=== PATIENT | female | born 1985 | race Two or more races ===

== ENCOUNTER → 2025-02-22 | Outpatient (CLI) | payer OTHER, SELFPAY ==
[2025-02-22 18:38] LABS: Urea Breath Test Negative (Negative)
== END | disposition home or self-care (01) ==
LOC: COPL 14:55
PROVIDERS: PCP Family Medicine; Referring Provider Nurse Practitioner Family; Visit Provider Nurse Practitioner Family
DX: K21.9 Gastro-esophageal reflux disease without esophagitis (principal)
CPT/HCPCS: 83013; 83014

== ENCOUNTER → 2025-03-30 | Day surgery (SDC) | payer OTHER, SELFPAY ==
[2025-03-29 07:42] VITALS: BMI 33.7
[2025-03-29 11:36] LABS: HCG Qualitative,Urine Negative
[2025-03-30] VITALS (10 sets, daily range): BP systolic 128–142; BP diastolic 81–94; PULSE 85–108; RESP 10–20; TEMP 36.5–36.9; O2SAT 95–99; BMI 35.3
[2025-03-30] MEDS: OXYMETAZOLINE NAS SPRY 0.05% 15 ML BTL NASAL ×2 (13:56→17:00)
--- NOTE | 2025-03-30 18:09 | PD.SUROPNT ---
Date of Procedure 03/30/25 Pre Op Diagnosis Nasal septal deviation with obstruction Bilateral inferior turbinate hypertrophy Post Op Diagnosis Nasal septal deviation with obstruction Bilateral inferior turbinate hypertrophy Procedure Intranasal septoplasty Bilateral inferior turbinate reduction Findings Deviated nasal septum to the left with enlarged inferior turbinates Procedure Description This is a 39-year-old female with chronic nasal congestion with the above findings. Treatment options were discussed as well as surgical risk including bleeding infection nasal deformity and potential need for further surgery. She understood this and wished to proceed. Patient was transferred to the operative suite where she was anesthetized intubated and sterilely draped. Timeout was performed. Nasal septum as well as the inferior turbinates were injected with 1% lidocaine with 1 100,000 dilution epinephrine. Approximately 5 cc total were used. A caudal rim incision was made on the left side of the septum mucosa was carefully elevated off the septal cartilage and bone. Perpendicular plate was from the quadrangular cartilage with a [place] elevator mucosal flap elevated off the right side. The deviated portion of the perpendicular plate was removed a Jacob forceps. There is still some mild deviation inferiorly and this was fractured over with the medium nasal speculum. The mucosal flaps were then reapproximated to the underlying cartilage with a 4-0 plain gut suture in a quilting type stitch. This was used to close the rim incision as well. Left inferior turbinate was then reduced in submucosal plane with a 2.9 mm turbinate shaver blade. Dissection was performed on insertion and withdrawal. The entry site was then cauterized. A similar procedure was performed on the right side. Patient was awakened and taken the recovery room in stable condition Anesthesia GETA Pathology / specimen None Estimated Blood Loss 5 Surgeon Vincent Lizama DO Surgical Staff Operation Date: 03/30/25 16:00 Case Staff Anesthesiologist: Adrian Harp
--- NOTE | 2025-03-30 18:52 | SUR.PHASEI ---
AT 1821 PATIENT RECEIVED INTO [facility], REPORT RECEIVED FROM JIL CHOUDHURY AND DR HOLLIS, NO S/S OF DISTRESS NOTED, DRESSING UNDER NOSE IS CLEAN AND DRY, VSS.
--- NOTE | 2025-03-30 18:57 | SUR.PHASEII ---
1858 PATIENT TOLERATING PO WATER.
--- NOTE | 2025-03-30 19:39 | SUR.PHASEII ---
194 JESSICA () GIVEN D/C INSTRUCTION, HE STATED ALL INSTRUCTION WERE UNDERSTOOD AND HAD NO FURTHER QUESTION OR CONCERN. PATIENT D/C IN STABLE CONDITION.
== END | disposition home or self-care (01) ==
PROVIDERS: Anesthesiology; PCP Family Medicine; Referring Provider Otolaryngology; Visit Provider Otolaryngology
PROC: (CPT 30520; principal; 2025-03-30 15:45)
DX: J34.3 Hypertrophy of nasal turbinates (principal); J34.2 Deviated nasal septum
CPT/HCPCS: 30130; 81025; A4217; A4649; J0690; J1100; J1885; J2250; J2371; J2405; J2590; J2704; J2795; J3010; J3490; J7040; A9270

== ENCOUNTER 2025-05-25 14:56 | Inpatient (IN) | payer OTHER, SELFPAY ==
--- NOTE | 2025-05-25 | XR_ITS ---
MRI abdomen, without contrast. MRCP Date and time of exam: May 25, 2025, 1737 hours INDICATIONS: Mid abdominal pain beginning 3 days ago, gallbladder sonogram today enlarged common bile duct 0.8 cm, cholelithiasis Technique: Multiple axial and coronal images of the abdomen have been obtained with the Siemens 1.5T MRI scanner. Images obtained included T1 weighted transverse images, T2-weighted transverse images, T2-weighted transverse images fat-suppressed, T2 weighted haste fat suppressed transverse images, T1 weighted images, in and out of phase images, T2-weighted coronal images, breath hold, T2 weighted haze coronal images as well as T2 weighted coronal thick slab images, MRCP. Findings: No focal liver lesions Mild intrahepatic biliary ductal dilatation Cholelithiasis, negative for cholecystitis Common bile duct 6 mm no common bile duct stones No peripancreatic edema No hydronephrosis No ascites Aorta normal size Negative for splenomegaly IMPRESSION: Cholelithiasis, negative for cholecystitis Negative for common hepatic or common bile duct stones Negative for pancreatitis
[2025-05-25 15:19] VITALS: BP 117/76; PULSE 69; RESP 18; TEMP 37.1; O2SAT 100; BMI 35.8
--- NOTE | 2025-05-25 15:24 | EKG_ITS ---
[facility] Test Date: 2025-05-25 Pat Name: RENETTA SCHAFER Department: Room: - Gender: Female [place] C[place]: : 1985 Requested By: Jose Eduardo Fernando Order Number: [id number] Reading MD: Jose Eduardo Fernando Measurements Intervals Onyx Rate: 68 P: 51 IL: 138 QRS: 24 QRSD: 86 T: 38 QT: 373 QTc: 398 Interpretive Statements SINUS RHYTHM Compared to ECG 10/09/2023 11:48:29 No significant changes /store/S0/[id number].pdf
--- NOTE | 2025-05-25 15:24 | XR_ITS ---
Examination: Abdomen sonogram, Limited Date and time of exam: May 25, 2025 1546 hours INDICATIONS: Onset epigastric pain today Technique: Real-time kate scale transabdominal sonographic images of the upper abdomen obtained. Findings: Multiple gallstones Gallbladder wall 0.36 cm no edema Common bile duct enlarged 0.8 cm although no definite stones Pancreatic head 2.9 cm Liver 13.6 cm smooth contour no focal liver lesions Normal hepatopedal portal venous flow Patent IVC IMPRESSION: Cholelithiasis Abnormal enlargement common bile duct 0.8 cm, consider MRCP follow-up to exclude common bile duct stones and/or stricture
--- NOTE | 2025-05-25 15:26 | PD.EDABDPN ---
ED Abdominal Pain RME/HPI General Chief Complaint: Abdominal Pain Stated complaint: Mid center abdominal pain Time seen by provider: 05/25/25 15:05 Arrival date/time: 05/25/25 14:56 RME / HPI RME / HPI narrative: 39-year-old female patient came in for evaluation regarding epigastric pain. Onset of symptoms earlier today, after eating tacos. Associated with nausea. Pain is described as crampy, 70 moderate. No fever noted no vomiting noted no diarrhea any noted no constipation noted. Patient also denies any abdominal surgery. She is not taking any maintenance medications. Related Data Previous Rx's ?Medication ?Instructions ?Recorded cephalexin 500 mg capsule 500 mg PO BID #2 caps 03/30/25 Allergies Allergy/AdvReac Type Severity Reaction Status Date / Time No Known Allergies Allergy Verified 05/25/25 15:01 Review of Systems Review of Systems Narrative Review of Systems: Review of system reviewed and within normal limits except mentioned in HPI ED Exam Narrative Physical exam: VITAL SIGNS: Reviewed. GENERAL APPEARANCE: Alert and interactive, follows commands, no acute distress, HEAD AND FACE: Non-traumatic. ENT: PERRL, pink conjunctivitis, eyelid no trauma, Mucous membrane moist. NECK: Supple, nontender, no nuchal rigidity. CHEST: No tenderness, no crepitus, no paradoxical movement, no retractions. LUNGS: Clear, well ventilated, symmetric, no rales, no wheezing, no ronchi, no stridor, good breath sounds bilaterally. HEART: Regular rate, regular rhythm, no murmur, no gallops. ABDOMEN: Soft, positive bowel sounds, nondistended, no guarding, epigastric tenderness, no rebound, no masses, RECTAL: Deferred. GENITAL: Deferred. NEUROLOGICAL: Gross motor function intact sensory function intact, Appropriate for age. MUSCULOSKELETAL: low back nontender, full range of motion. EXTREMITIES: Nontender, full range of motion. SKIN: Color pink, dry, no rash, no lacerations, no abrasions, no contusions. LYMPHATICS: Deferred. Course Quality Measures none Orders Category Date Time Status COVID-19 Screening Questionnaire NOW Care 05/25/25 19:32 Ordered Decision to Admit X1 Care 05/25/25 19:32 Ordered EKG (ED ONLY) *Do not use* NOW Care 05/25/25 15:24 Completed MRI Screening NOW Care 05/25/25 16:32 Active EKG (ED Only) Stat Exams 05/25/25 15:24 Draft MR MRCP Stat Exams 05/25/25 Completed US gall bladder Stat Exams 05/25/25 15:24 Completed CBC Stat Lab 05/25/25 15:40 Completed Comprehensive Metabolic Panel Stat Lab 05/25/25 15:40 Completed HCG Qualitative,Urine Stat Lab 05/25/25 18:16 Completed Lipase Stat Lab 05/25/25 15:40 Completed Lipid Panel Stat Lab 05/25/25 15:40 Completed Partial Thromboplastin Time Stat Lab 05/25/25 15:40 Completed Prothrombin Time with INR Stat Lab 05/25/25 15:40 Completed UA, C/S IF [Urinalysis, C/S if Indicated] Stat Lab 05/25/25 18:16 Completed Ketorolac Inj [Toradol Inj] Med 05/25/25 15:25 Discontinued 30 mg IM X1 ONE Ondansetron Odt [Zofran Odt] Med 05/25/25 15:25 Discontinued 4 mg PO X1 ONE Ringers Lactated 1000 ml [Lactated Ringers] 1,000 ml Med 05/25/25 17:15 Discontinued IV 999 mls/hr Vital Signs Vital signs: Vital Signs Temperature 98.7 F 05/25/25 15:19 Pulse Rate 69 05/25/25 15:19 Respiratory Rate 18 05/25/25 15:19 Blood Pressure 117/76 05/25/25 15:19 Pulse Oximetry (%) 100 05/25/25 15:19 Oxygen Delivery Method Room Air 05/25/25 15:19 Abdominal Pain MDM MDM Narrative MDM Narrative:: 39-year-old female patient came in for evaluation regarding epigastric pain. Onset of symptoms earlier today, after eating tacos. Associated with nausea. Pain is described as crampy, 70 moderate. No fever noted no vomiting noted no diarrhea any noted no constipation noted. Patient also denies any abdominal surgery. She is not taking any maintenance medications. Patient received IV fluids, Toradol, and Zofran. Patient workup is significant for lipase of more than 3500. There is of the labs unremarkable. Ultrasound of the gallbladder showed cholelithiasis with dilatation of common bile duct. I did a MRCP, I came back cholelithiasis with no sign of acute cholecystitis. No choledocholithiasis noted. Results discussed with the patient. Case discussed with hospitalist, who admitted the patient. Patient data External records reviewed:: None Clinical information provided by:: patient Social determinants that could affect healthcare access:: none Patient has the following chronic illnesses:: None How is presenting disease/condition affected by chronic disease/condition?: no chronic disease Evaluation data The following diagnostics were reviewed and interpreted by me:: lab results and radiology exam(s) Lab and/or radiology exams considered but not ordered:: None Interpretation Summary: See results MDM Medications / Prescriptions Medications or Prescriptions considered but not ordered:: None Medication administrations:: Medication Administration History Discontinued Medications Lactated Ringer's (Lactated Ringers) 1,000 mls @ 999 mls/hr IV .Q1H1M ONE Stop: 05/25/25 18:15 Last Admin: 05/25/25 18:39 Dose: 999 mls/hr Documented By: LELA Ketorolac Tromethamine (Ketorolac Inj 60 Mg/2 Ml Vial) 30 mg IM X1 ONE Stop: 05/25/25 15:26 Last Admin: 05/25/25 15:33 Dose: 30 mg Documented By: CARISSA Ondansetron HCl (Ondansetron Odt 4 Mg Tabrap) 4 mg PO X1 ONE; Protocol Stop: 05/25/25 15:26 Last Admin: 05/25/25 15:34 Dose: Not Given Documented By: CARISSA Non-Admin Reason: Patient Refused Zofran, Toradol, IV fluids Consultations Consultation(s) initiated? (list below): No Diagnosis Differential diagnosis abdominal pain: abdominal pain and other (Gallstone pancreatitis, acute cholecystitis,) Most likely diagnosis given after review of the tests above:: Gallstone pancreatitis Admission Indicated Admission indicated?: indicated Explain why admission is indicated or not indicated:: Patient is to be admitted for further management Admission Request Was there a request for admission?: No Disposition Plan Disposition Plan: Admit Discharge Plan Plan Patient Disposition: Admit Acute Care w/in Hospital Discharge Disposition comment: Stable Prescriptions/Referrals Prescriptions/Med Rec: No Action cephalexin 500 mg capsule 500 mg PO BID Qty: 2 0RF Rx Instructions: Begin first dose tomorrow morning Referrals: Denny Marie MD [Primary Care Provider] - In 1 week Problem List Clinical Impression: Acute gallstone pancreatitis Patient/Caregiver Discharge Instructions Print Language: Faroese Stand Alone Forms: [employer] Patient Portal Info Letter
[2025-05-25] MEDS: KETOROLAC INJ 60 MG/2 ML VIAL 30 MG IM (15:33)
[2025-05-25 16:06] LABS: Basophils # (Auto) 0.0 Thou/mm3 (0.0-0.2); Basophils % (Auto) 0 % (0-2.5); Eosinophils # (Auto) 0.1 Thou/mm3 (0.0-0.5); Eosinophils % (Auto) 1 % (0-10); Hematocrit 40.9 % (36.0-46.0); Hemoglobin 14.2 g/dL (12.0-16.0); Immature Granulocytes Auto 0.05 Thou/mm3 (0.00-0.00); Lymphocytes # (Auto) 2.0 Thou/mm3 (1.0-4.8); Lymphocytes % (Auto) 13 % (10-50); Mean Corpuscular HGB Conc 34.7 g/dl (31.0-37.0); Mean Corpuscular Hemoglobin 32.1 pg (25.0-35.0); Mean Corpuscular Volume 93 fL (80-100); Monocytes # (Auto) 1.0 Thou/mm3 (0.0-0.8); Monocytes % (Auto) 6 % (0-12); Neutrophils # (Auto) 12.2 Thou/mm3 (1.8-7.7); Neutrophils % (Auto) 80 % (37-80); Nucleated Red Blood Cell # 0.00 Thou/mm3 (0.00-0.00); Nucleated Red Blood Cell % 0 /100 WBC (0); Platelet Count 280 Thou/mm3 (140-440); RDW Standard Deviation 42.5 fL (36.4-46.3); Red Blood Count 4.42 Miln/mm3 (4.00-5.20); White Blood Count 15.3 Thou/mm3 (3.6-11.0)
[2025-05-25 16:19] LABS: INR 1.0 (0.9-1.3); Partial Thromboplastin Time 27.3 Seconds (22.0-36.0); Prothrombin Time 10.6 Seconds (9.0-12.2)
[2025-05-25 16:47] LABS: Alanine Aminotransferase 37 U/L (10-49); Albumin, Serum 4.6 gm/dL (3.5-5.0); Albumin/Globulin Ratio 1.5 (1.2-2.2); Alkaline Phosphatase 100 U/L (46-116); Anion Gap 9 (7-16); Aspartate Amino Transferase 76 U/L (0-34); BUN/Creatinine Ratio 8 Ratio (12-20); Bilirubin,Total 0.4 mg/dL (0.3-1.2); Blood Urea Nitrogen 9 mg/dL (9-23); Calcium 9.3 mg/dL (8.3-10.6); Calcium (Corrected) 9.3 mg/dL (8.5-10.1); Carbon Dioxide 28.3 mMol/L (20.0-31.0); Chloride 103 mMol/L (98-107); Creatinine (Component) 1.2 mg/dL (0.6-1.3); Estimated Creatinine Clearance 74.6 mL/min (>60); Globulin 3.1 gm/dL (2.3-3.5); Glucose 96 mg/dL (74-106); Lipase > 3500 U/L (12-53); Osmolality,Calculated 278 (275-295); Potassium 3.9 mMol/L (3.4-5.1); Sodium 140 mMol/L (136-145); Total Protein 7.7 gm/dL (5.7-8.2); eGFR 59 See Note
[2025-05-25 17:31] LABS: Cardiac Risk Estimate 2.3 RATIO (3.7-5.6); Cholesterol 158 mg/dL (132-200); HDL Cholesterol 68 mg/dL (40-60); LDL Cholesterol,Calculated 70 mg/dL (0-130); Triglycerides 101 mg/dL (30-150)
[2025-05-25 18:20] VITALS: BP 116/81; PULSE 81; PULSE 82; RESP 16; RESP 18; TEMP 36.7; TEMP 36.9; O2SAT 97; O2SAT 98
[2025-05-25 18:22] LABS: Collection Type, Urine Clean Catch
[2025-05-25] MEDS: RINGERS LACTATED 1000 ML 1,000 ML 999 ML IV (18:39)
[2025-05-25 19:06] LABS: Bilirubin,Urine Negative (Negative); Blood,Urine 3+ (Negative); Clarity,Urine Clear (Clear/Hazy); Color,Urine Lt-Yellow (Lt Yel-Yel); Culture Indicated,Urine Not Indicated; Glucose, Urine Negative (Negative); Ketones,Urine Negative (Negative); Leukocyte Esterase,Urine Negative (Negative); Nitrite,Urine Negative (Negative); PH,Urine 7.0 (5.0-7.0); Protein,Urine Negative (Neg - Trace); RBC,Urine 26 /hpf (0-3); Specific Gravity,Urine 1.009 (1.001-1.035); Squamous Epithelial Cell,Urine < 1 /hpf (0-5); Urobilinogen,Urine Negative mg/dL (0.0-1.0); WBC,Urine 4 /hpf (0-5)
[2025-05-25 19:15] LABS: HCG Qualitative,Urine Negative
[2025-05-25 19:52] VITALS: BP 133/85; PULSE 75; RESP 20; TEMP 36.8; O2SAT 98
[2025-05-25 21:10] VITALS: BP 129/83; PULSE 62; RESP 18; TEMP 36.1; O2SAT 97
[2025-05-25 21:40] VITALS: BMI 35.6
--- NOTE | 2025-05-25 22:00 | PD.RESHP ---
Documentation for date of: 05/25/25 [facility] History of Present Illness History of present illness: Maryanne Wilhelm is a 39-year-old female with a no PMH who presents today with acute epigastric pain. Patient reports that the pain started today at 2 PM and that she has never had pain like this before. The pain is primarily localized at the epigastrium but radiates up the chest and towards the back. She describes the pain as sharp and burning in character and that the intensity of the it fluctuates (being a 10/10 pain at its most severe). However, at the time of interview, patient had already received Toradol and said that her prior pain had been reduced to mere soreness. Currently, she reports her pain to be a 0/10. In the ED, vitals showed: BP 117/76 HR 69 RR 18 Temp 98.7 SpO2 100% on room air ED Course: CBC showed elevated WBC 15.3 with neutrophilic predominance but was otherwise unremarkable. CMP showed low EGFR 59, high AST 76, normal ALT 37, normal alkaline phosphatase 100, high HDL cholesterol 68, and significantly elevated lipase over 3500. UA showed 3+ blood, with 26 RBCs per high-powered field (of note, patient was on her period). Imaging: EKG showed normal sinus rhythm. Gallbladder ultrasound showed abnormal enlargement of the common bile duct 0.8 cm. MRCP showed cholelithiasis but was negative for cholecystitis, common hepatic or common bile duct stones, and pancreatitis. In the ED, patient was given IM ketorolac 30 mg x 1 and 1 L LR bolus x 1. Patient was admitted for the work-up and management of acute gallstone pancreatitis. Review of Systems Review of Systems Narrative Review of Systems: General: Denies fevers or chills HEENT: Denies congestion or sore throat Heart: Denies chest pain or palpitations Lungs: Denies shortness of breath or cough Abdomen: Denies abdominal pain, nausea, vomiting, constipation, diarrhea, or blood in stool Genitourinary: Denies frequency, urgency, dysuria, or hematuria Neurology: Denies any changes in vision, weakness or difficulty speaking Review of systems otherwise negative except what is mentioned above. Constitutional Comments: General: Denies fevers or chills HEENT: Denies congestion or sore throat Heart: Endorses palpitations. Denies chest pain Lungs: Endorses shortness of breath. Denies cough Abdomen: Endorses RUQ and epigastric abdominal pain. Denies nausea, vomiting, constipation, diarrhea, or blood in stool Genitourinary: Endorses current menstruation. Denies frequency, urgency, dysuria, or hematuria Neurology: Denies any changes in vision, weakness or difficulty speaking Review of systems otherwise negative except what is mentioned above. Past Medical History Past Medical History NEUROLOGIC: Negative Neurological Disorders or Seizures CARDIAC: Negative Cardiac Disorders or Congestive Heart Failure RESPIRATORY: Negative Respiratory Disorders or Chronic Obstructive Pulmonary Disease (COPD) GASTROINTESTINAL: Negative Gastrointestinal Disorders or Hepatitis GENITOURINARY: Negative Genitourinary Disorders or Renal Disease REPRODUCTIVE: Positive Previous Pregnancies MUSCULOSKELETAL: Negative Musculoskeletal Disorders ENDOCRINE: Negative Endocrine Disorders, Diabetes Mellitus Type 1 or Diabetes Mellitus Type 2 HEMATOLOGIC: Negative Blood Disorders OTHER HISTORY: Positive Chicken Pox; Negative Hospitalization, Autoimmune Disease, Shingles, Blood Transfusions, Blood Transfusion Reaction, Anesthesia Reactions or Cancer Family History FAMILY HISTORY: Positive Family Cancer and Family Surgery; Negative Family Psychiatric Problems, Family Respiratory Disorders, Family Cardiac Disorders, Family Gastrointestinal Problems or Family Anesthesia Reaction Surgical History SURGICAL: Positive Nose Surgery Social History SMOKING STATUS: Never smoker SECOND HAND EXPOSURE: No Past Medical History Comments PMH COMMENT: PMH: none PSH: dilation & curettage x2, breast augmentation, septoplasty Medications: none Allergies: none FH: grandma has HTN, dad had prostate cancer, older brother had bile duct cancer SH: lives in a house in [place] with and son, no significant history of drinking, smoking, or recreational drug use Exam Vital Signs Temp Pulse Resp BP Pulse Ox O2 Del Method 98.2 F 75 20 133/85 H 98 Room Air 05/25/25 19:52 05/25/25 19:52 05/25/25 19:52 05/25/25 19:52 05/25/25 19:52 05/25/25 19:52 Narrative Exam Physical Exam: General: Alert, no acute distress. Skin: Warm, dry, intact, no obvious rash. Head: Normocephalic, atraumatic. Eye: Normal conjunctiva, PERRL. Throat: Oral mucosa moist. No obvious lesions in oropharynx. Cardiovascular: Regular rate and rhythm, no murmur, +S1/S2. Respiratory: Lungs are clear to auscultation, respirations unlabored, no crackles, no wheezing. Gastrointestinal: Soft, nontender, non-distended. No guarding or rebound tenderness. Extremities: No edema, no cyanosis, no clubbing. 2+ radial pulse bilaterally, 2+ posterior tibial pulse bilaterally. Neuro: No focal deficits observed. Conversant, moving all extremities. No overt cerebellar signs/incoordination. Psychiatric: Cooperative, appropriate affect. Results: Labs 05/25/25 15:40 05/25/25 15:40 Labs: Short CBC 05/25/25 Range/Units 15:40 WBC 15.3 H (3.6-11.0) Thou/mm3 Hgb 14.2 (12.0-16.0) g/dL Hct 40.9 (36.0-46.0) % Plt Count 280 (140-440) Thou/mm3 BMP 05/25/25 15:40 Sodium 140 Potassium 3.9 Chloride 103 Carbon Dioxide 28.3 BUN 9 Creatinine 1.2 Glucose 96 Calcium 9.3 Liver Function 05/25/25 Range/Units 15:40 Total Bilirubin 0.4 (0.3-1.2) mg/dL AST 76 H (0-34) U/L ALT 37 (10-49) U/L Alkaline Phosphatase 100 (46-116) U/L Albumin 4.6 (3.5-5.0) gm/dL Urine 05/25/25 Range/Units 18:16 Urine Color Lt-Yellow (Lt Yel-Yel) Urine Clarity Clear (Clear/Hazy) Urine pH 7.0 (5.0-7.0) Ur Specific Ivel 1.009 (1.001-1.035) Urine Protein Negative (Neg - Trace) Urine Glucose (UA) Negative (Negative) Quality Measures Quality Measures none Medications Home Medications and Allergies Allergies Allergy/AdvReac Type Severity Reaction Status Date / Time No Known Allergies Allergy Verified 05/25/25 15:01 Visit Medications Acetaminophen (Acetaminophen 325 Mg Tablet) 650 mg PO Q6H PRN PRN Reason: PAIN SCALE 1-3 (mild Stop: 06/24/25 20:15 Hydrocodone Bitart/Acetaminophen (Hydrocodone/Apap 5/325 Tablet) 1 tab PO Q6HR PRN PRN Reason: PAIN SCALE 4-6 (Moderate Stop: 05/30/25 20:15 Enoxaparin Sodium (Enoxaparin Sod Inj 40 Mg/0.4 Ml Syringe) 40 mg SC QDAY GRISELDA Stop: 06/09/25 08:59 Lactated Ringer's (Lactated Ringers) 1,000 mls @ 150 mls/hr IV .Q6H40M GRISELDA Stop: 06/24/25 21:26 Morphine Sulfate (Morphine Sulf Inj 10 Mg/Ml Vial) 1 mg IVP Q6HR PRN PRN Reason: PAIN SCALE 7-10 (Severe Stop: 05/30/25 20:15 Ondansetron HCl (Ondansetron Inj 2 Mg/Ml Inj 2 Ml) 4 mg IVP Q6H PRN; Protocol PRN Reason: NAUSEA OR VOMITING Stop: 06/24/25 20:15 Discontinued Medications Lactated Ringer's (Lactated Ringers) 1,000 mls @ 999 mls/hr IV .Q1H1M ONE Stop: 05/25/25 18:15 Last Infusion: 05/25/25 19:48 Dose: Infused Lactated Ringer's (Lactated Ringers) 1,000 mls @ 200 mls/hr IV .Q5H GRISELDA Stop: 06/24/25 20:29 Ketorolac Tromethamine (Ketorolac Inj 60 Mg/2 Ml Vial) 30 mg IM X1 ONE Stop: 05/25/25 15:26 Last Admin: 05/25/25 15:33 Dose: 30 mg Ondansetron HCl (Ondansetron Odt 4 Mg Tabrap) 4 mg PO X1 ONE; Protocol Stop: 05/25/25 15:26 Last Admin: 05/25/25 15:34 Dose: Not Given Assessment & Plan Assessment Maryanne Wilhelm is a 39-year-old female with a no PMH who presents today with acute epigastric pain. Patient was admitted for the work-up and management of acute gallstone pancreatitis. #Acute gallstone pancreatitis #Transaminitis #Leukocytosis Diagnosis corroborated by significantly elevated lipase over 3500 and classic epigastric pain consistent with pancreatitis (diagnosis confirmed even with negative MRCP findings due to achieving 2 of 3 diagnostic criteria) MRCP showed cholelithiasis s/p 1 L LR bolus x1 (loading fluid infusion) given in ED Elevated WBC 15.3 w/ neutrophilic predominance and elevated AST 76 is currently thought to be 2/2 pancreatitis Diagnostic Inquiry -Consider consulting General Surgery for indications for possible cholecystectomy (given symptomatic gallstones) Treatment Plan -1 L LR maintenance fluid @ 150 mL/hr (moderate fluid infusion) to improve pancreatic perfusion and prevent hypovolemia -Pain management: 1. PO Tylenol 650 mg q6HR prn (pain 1-3) 2. PO [place] 5/325 q6HR prn (pain 4-6) 3. IV morphine 1 mg q6HR prn (pain 7-10) -NPO (advance diet as tolerated) -IV Zofran 4 mg q6HR prn for nausea #CLARE, likely renal/postrenal (BUN/creatinine ratio 7.5) #likely 2/2 to dehydration Patient meets criteria for CLARE due to an increase of 0.5 in her creatinine (baseline 0.7 -> current 1.2) Low eGFR 59 Diagnostic Inquiry -Monitor renal panel -Daily weights to monitor volume status Treatment Plan -1 L LR maintenance fluid @ 150 mL/hr (same management for pancreatitis) #Hematuria UA showed 3+ blood with 26 RBCs/hpf but patient is currently on her period Diagnostic Inquiry -Repeat UA after patient's period has passed Treatment Plan -No current recommendation Hospital Management: Disposition: undergoing management of acute gallstone pancreatitis Diet: NPO (advance diet as tolerated) GI Prophylaxis: none Bowel Prophylaxis: none DVT Prophylaxis: Lovenox CODE STATUS: Full Code I have examined the patient and conferred with my attending, Dr. Merrill, and my senior resident, Dr. Jeffers, regarding them. Darion Clay DO PGY-1 Internal Medicine Attending Provider Attestation/Addendum I attest that I was physically present for the evaluation, physical examination, lab and imaging review of the patient with the residents. I discussed the case with the residents and agree with the findings and plans of care as documented above. After examination of the patient and review of the clinical data I feel that this patient needs admission to the hospital for further treatment/evaluation. Patient is a 39 years old female without known past medical history who presented to the ED with complaint of abdominal pain. The pain was located initially in epigastrium, radiating to right upper quadrant and her back. Pain was severe but has improved significantly now. It was also associated with some nausea. She denied any vomiting, change in bowel or bladder habit, fever. In the ED, initial vitals were within normal limits. Lab results show leukocytosis with WBC of 15.3, chemistry panel showed creatinine of 1.2, elevated from her baseline of 0.7, AST 76, lipase more than 3500. Gallbladder ultrasound was obtained, which showed cholelithiasis, CBD dilation 0.8 cm. MRCP was done afterwards, which showed cholelithiasis, negative for cholecystitis and negative for common hepatic and common bile duct. CBD diameter was 6 mm. Her calcium level and triglyceride levels are also within normal limits. Patient also denied alcohol abuse. We will admit the patient for management of acute pancreatitis likely secondary to gallstones. Patient received fluid bolus in the ED, we will continue with aggressive hydration with Ringer's lactate at 150 cc/h. Also started on analgesic regimen and antiemetics. We will keep her n.p.o. for now, once patient's nausea resolves completely, we will start her on clear liquid diet. Consider general surgery consult in a.m. for evaluation for cholecystectomy. Ramon Merrill MD
[2025-05-25] MEDS: RINGERS LACTATED 1000 ML 1,000 ML 150 ML IV (22:29)
[2025-05-26] VITALS: BP 112/70; PULSE 64; RESP 19; TEMP 36.1; O2SAT 97
--- NOTE | 2025-05-26 03:55 | PC.NURSE ---
Patient arrived in MedSurg unit from ED via wheelchair.
[2025-05-26 04:00] VITALS: BP 100/64; PULSE 64; RESP 18; TEMP 36.2; O2SAT 97
[2025-05-26] MEDS: RINGERS LACTATED 1000 ML 1,000 ML 150 ML IV ×3 (05:19→17:54)
[2025-05-26 06:30] LABS: Basophils # (Auto) 0.0 Thou/mm3 (0.0-0.2); Basophils % (Auto) 1 % (0-2.5); Eosinophils # (Auto) 0.2 Thou/mm3 (0.0-0.5); Eosinophils % (Auto) 4 % (0-10); Hematocrit 39.6 % (36.0-46.0); Hemoglobin 13.8 g/dL (12.0-16.0); Immature Granulocytes Auto 0.02 Thou/mm3 (0.00-0.00); Lymphocytes # (Auto) 2.2 Thou/mm3 (1.0-4.8); Lymphocytes % (Auto) 35 % (10-50); Mean Corpuscular HGB Conc 34.8 g/dl (31.0-37.0); Mean Corpuscular Hemoglobin 32.1 pg (25.0-35.0); Mean Corpuscular Volume 92 fL (80-100); Monocytes # (Auto) 0.6 Thou/mm3 (0.0-0.8); Monocytes % (Auto) 9 % (0-12); Neutrophils # (Auto) 3.3 Thou/mm3 (1.8-7.7); Neutrophils % (Auto) 51 % (37-80); Nucleated Red Blood Cell # 0.00 Thou/mm3 (0.00-0.00); Nucleated Red Blood Cell % 0 /100 WBC (0); Platelet Count 233 Thou/mm3 (140-440); RDW Standard Deviation 42.2 fL (36.4-46.3); Red Blood Count 4.30 Miln/mm3 (4.00-5.20); White Blood Count 6.4 Thou/mm3 (3.6-11.0)
[2025-05-26 07:16] LABS: Alanine Aminotransferase 128 U/L (10-49); Albumin, Serum 3.6 gm/dL (3.5-5.0); Albumin/Globulin Ratio 1.3 (1.2-2.2); Alkaline Phosphatase 87 U/L (46-116); Anion Gap 10 (7-16); Aspartate Amino Transferase 126 U/L (0-34); BUN/Creatinine Ratio 10 Ratio (12-20); Bilirubin,Total 0.6 mg/dL (0.3-1.2); Blood Urea Nitrogen 7 mg/dL (9-23); Calcium 8.5 mg/dL (8.3-10.6); Calcium (Corrected) 8.8 mg/dL (8.5-10.1); Carbon Dioxide 25.8 mMol/L (20.0-31.0); Chloride 108 mMol/L (98-107); Creatinine (Component) 0.7 mg/dL (0.6-1.3); Estimated Creatinine Clearance 127.5 mL/min (>60); Globulin 2.7 gm/dL (2.3-3.5); Glucose 86 mg/dL (74-106); Glucose Estimated Average 97 mg/dL (80-131); Hemoglobin A1C 5.0 % Hgb (4.8-6.0); Magnesium 1.5 mg/dL (1.6-2.6); Osmolality,Calculated 283 (275-295); Phosphorous 2.5 mg/dL (2.4-5.1); Potassium 4.2 mMol/L (3.4-5.1); Sodium 144 mMol/L (136-145); Total Protein 6.3 gm/dL (5.7-8.2); eGFR > 60 See Note
[2025-05-26 08:00] VITALS: BP 118/68; PULSE 68; RESP 17; TEMP 36.1; O2SAT 97
--- NOTE | 2025-05-26 10:48 | PC.SS ---
Maryanne Wilhelm is a 39-year-old female admitted to Med Surg for Pancreatitis. SS conducted bedside contact with the patient to complete initial assessment and to discuss discharge planning. Role and reason explained. Patient confirmed demographic information. Patient identifies Valeriy Garza [phone] as her surrogate decision maker. Pt states she is able to complete all ADL?s independently. No need for any source of DME. Pts PCP is Dr. Kian Marie (last visit was about 2 months ago) . Pharmacy of choice is [facility]. Discharge options discussed and the pt wishes to return home.? Family will provide transportation upon DC. No further intervention required at this time, aids social worker would be available to address any further concerns. DC Plan: Home Contact: randall Crooks Address: Confirmed on face sheet PCP: Frank
[2025-05-26 12:00] VITALS: BP 108/72; PULSE 64; RESP 17; TEMP 36.1; O2SAT 98
--- NOTE | 2025-05-26 13:43 | ESPR_ITS ---
Documentation for date of: 05/26/25 Senior resident attestation: Patient evaluated and examined at the bedside, plan of care discussed with rest of the team including my attending physician, except as noted. The patient was seen for acute pancreatitis, idiopathic etiology, patient does have gallstones, but no evidence of cholecystitis or choledocholithiasis on MRCP. Noted remarkable improvement patient condition, pain improved, started on clear liquid diet, patient tolerating diet continue IV fluids for today, will advance diet to full liquid for dinner and. Multimodal analgesia as needed. Anticipate discharge in the morning. Patient will be referred to general surgery for elective cholecystectomy at a later date. Quresh PGY3 Subjective Subjective Interval history: No Overnight events. Labs reviewed and patient examined at the bedside. WBC: 6.4 Cr:0.7. Patient has minimal epigastric pain. Denies shortness of breathe, chest pain, palpitations, fevers or chills. Still on LR maintenance fluid 150ml/hr. Patient started on clear liquid diet. In ED, MRCP showed cholelithiasis. Surgery consult ordered. Exam Vital Signs Temp Pulse Resp BP Pulse Ox O2 Del Method 97.0 F 64 17 108/72 98 Room Air 05/26/25 12:00 05/26/25 12:00 05/26/25 12:00 05/26/25 12:00 05/26/25 12:05/26/25 12:00 Narrative Exam General: No acute distress, well nourished Eye: PERRL, EOMI, normal conjunctiva, no scleral icterus HENT: Normocephalic, atraumatic, hearing intact to conversation at normal volume, moist oral mucosa Neck: Supple, non-tender, no JVD, no lymphadenopathy Lungs: Non-labored respirations, symmetric chest rise, Clear to auscultate bilaterally Heart: Peripheral pulses intact bilaterally, Regular Rate and Rhythm Abdomen: Soft, non-tender, non-distended, Minimal epigastric pain on palpation. Musculoskeletal: Normal range of motion and strength Skin: Skin is warm, dry, no rashes or lesions. Psychiatric: Cooperative, appropriate mood and affect Neuro: Cranial nerves II-XII grossly intact. Strength 5/5 throughout. Sensations intact to light touch. Objective Labs 05/27/25 04:10 05/27/25 04:10 Labs: Laboratory Results - last 24 hr 05/25/25 05/25/25 05/26/25 15:40 18:16 04:30 WBC 15.3 H 6.4 D RBC 4.42 4.30 Hgb 14.2 13.8 Hct 40.9 39.6 MCV 93 92 MCH 32.1 32.1 MCHC 34.7 34.8 RDW Std Deviation 42.5 42.2 Plt Count 280 233 D Neut % (Auto) 80 51 Lymph % (Auto) 13 35 [place] % (Auto) 6 9 Eos % (Auto) 1 4 Baso % (Auto) 0 1 Neut # (Auto) 12.2 H 3.3 Lymph # (Auto) 2.0 2.2 [place] # (Auto) 1.0 H 0.6 Eos # (Auto) 0.1 0.2 Baso # (Auto) 0.0 0.0 Immature Gran # (Auto) 0.05 H 0.02 H Absolute Nucleated RBC 0.00 0.00 Immature Gran % 0 0 Nucleated RBC % 0 0 PT 10.6 INR 1.0 APTT 27.3 Sodium 140 144 Potassium 3.9 4.2 Chloride 103 108 H Carbon Dioxide 28.3 25.8 Anion Gap 9 10 BUN 9 7 L Creatinine 1.2 0.7 D Estim Creat Clear Calc 74.6 127.5 eGFR 59 L > 60 BUN/Creatinine Ratio 8 L 10 L Glucose [address] Glu mg/dL 97 Hemoglobin A1c 5.0 Calculated Osmolality 278 283 Calcium 9.3 8.5 Corrected Calcium 9.3 8.8 Phosphorus 2.5 Magnesium 1.5 L Total Bilirubin 0.4 0.6 AST 76 H 126 H ALT 37 128 H Alkaline Phosphatase 100 87 Total Protein 7.7 6.3 Albumin 4.6 3.6 D Globulin 3.1 2.7 Albumin/Globulin Ratio 1.5 1.3 Triglycerides 101 Cholesterol 158 LDL Cholesterol, Calc 70 HDL Cholesterol 68 H Cholesterol/HDL Ratio 2.3 L Lipase > 3500 H* Ur Collection Type Clean Catch Urine Color Lt-Yellow Urine Clarity Clear Urine pH 7.0 Ur Specific [place] 1.009 Urine Protein Negative Urine Glucose (UA) Negative Urine Ketones Negative Urine Blood 3+ A Urine Nitrite Negative Urine Bilirubin Negative Urine Urobilinogen (Auto) Negative Ur Leukocyte Esterase Negative Urine RBC 26 H Urine WBC 4 Ur Squamous Epith Cells < 1 Urine Bacteria None Ur Culture Indicated? Not Indicated Urine HCG, Qual Negative Quality Measures Quality Measures none Assessment & Plan Assessment Current Active Medications: Generic Name Dose Route Start Last Admin Trade Name Freq PRN Reason Stop Dose Admin Acetaminophen 650 mg 05/25/25 20:16 Acetaminophen 325 Mg Tablet PO 06/24/25 20:15 Q6H PRN PAIN SCALE 1-3 (mild Hydrocodone Bitart/Acetaminophen 1 tab 05/25/25 20:16 Hydrocodone/Apap 5/325 Tablet PO 05/30/25 20:15 Q6HR PRN PAIN SCALE 4-6 (Moderate Enoxaparin Sodium 40 mg 05/26/25 09:00 05/26/25 11:45 Enoxaparin Sod Inj 40 Mg/0.4 Ml Syringe SC 06/09/25 08:59 Not Given QDAY GRISELDA Lactated Ringer's 1,000 mls @ 150 mls/hr 05/25/25 21:27 05/26/25 11:45 Lactated Ringers IV 06/24/25 21:26 150 mls/hr .Q6H40M GRISELDA Administration Morphine Sulfate 1 mg 05/25/25 20:16 Morphine Sulf Inj 10 Mg/Ml Vial IVP 05/30/25 20:15 Q6HR PRN PAIN SCALE 7-10 (Severe Ondansetron HCl 4 mg 05/25/25 20:16 Ondansetron Inj 2 Mg/Ml Inj 2 Ml IVP 06/24/25 20:15 Q6H PRN NAUSEA OR VOMITING Protocol Plan Maryanne Wilhelm is a 39-year-old female with a no PMH who presents today with acute epigastric pain. Patient was admitted for the work-up and management of acute gallstone pancreatitis. #Acute pancreatitis #Transaminitis #Leukocytosis-Resolved Diagnosis corroborated by significantly elevated lipase over 3500 and classic epigastric pain consistent with pancreatitis (diagnosis confirmed even with negative MRCP findings due to achieving 2 of 3 diagnostic criteria) MRCP showed cholelithiasis s/p 1 L LR bolus x1 (loading fluid infusion) given in ED Elevated WBC 15.3 w/ neutrophilic predominance and elevated AST 76 is currently thought to be 2/2 pancreatitis. Currently WBC 6.4. Plan: -General Surgery consulted, Dr Hunter, recommendation appreciated -1 L LR maintenance fluid @ 150 mL/hr (moderate fluid infusion) to improve pancreatic perfusion and prevent hypovolemia -Pain management: 1. PO Tylenol 650 mg q6HR prn (pain 1-3) 2. PO [place] 5/325 q6HR prn (pain 4-6) 3. IV morphine 1 mg q6HR prn (pain 7-10) -Initially kept n.p.o., started clear liquid diet, tolerated well advance as tolerated. -IV Zofran 4 mg q6HR prn for nausea #CLARE, likely renal/postrenal (BUN/creatinine ratio 7.5)-Resolved #likely 2/2 to dehydration Patient meets criteria for CLARE due to an increase of 0.5 in her creatinine (baseline 0.7 -> current 1.2) Low eGFR 59 -Current Cr: 0.7, GFR>60 Treatment Plan -1 L LR maintenance fluid @ 150 mL/hr (same management for pancreatitis) #Hematuria UA showed 3+ blood with 26 RBCs/hpf but patient is currently on her period Diagnostic Inquiry -Repeat UA after patient's period has passed Treatment Plan -No current recommendation Hospital Management: Disposition: undergoing management of acute gallstone pancreatitis Diet: Clear liquid diet (advance diet as tolerated) GI Prophylaxis: none Bowel Prophylaxis: none DVT Prophylaxis: Lovenox CODE STATUS: Full Code Assessment and plan discussed with my attending physician Dr. Gotti and Dr. Pollack (PGY-3) Dr. Flores (PGY-1)- Internal medicine resident Attending Provider Attestation/Addendum I have examined the patient, reviewed labs and imaging findings, discussed the case with the resident(s), and reviewed entered orders. I agree with the plan of care as outlined in this note, with these additional summaries/recommendations: Patient seen at bedside. No acute overnight events. Patient reports improvement in abdominal pain today. Patient was admitted overnight for acute pancreatitis most likely secondary to gallstones. Continue IV fluids and pain management for pancreatitis. Cholelithiasis seen on imaging and we will consult general surgery. Acute kidney injury resolved. There was a question of gross hematuria although patient is determined to be on her menstrual cycle. No further workup needed. Assessment and plan discussed with patient. All questions answered to satisfaction. Please see residents note for additional details and management. Dr. Shen MD
--- NOTE | 2025-05-26 14:52 | PC.SS ---
Rounding: On IV Fluids, plan to increase diet, if tolerates possible DC tomorrow home.
--- NOTE | 2025-05-26 15:08 | PD.SURCONS ---
HPI Consult details History of present illness: 39F who presented to ER yesterday with epigastric pain. Patient states pain began yesterday after eating, located in the epigastrium rating to the back, 10 out of 10 in severity. Patient has never had similar pain. She denies any associated fever, nausea or diarrhea and has never had symptomatic cholelithiasis. Workup is consistent with acute pancreatitis likely related to gallstones. At the moment patient reports feeling much better, she tolerated clears today and has not needed any pain medication since being in the ER PMH: none PSH: Septoplasty and turbinate reduction March 2025, breast augmentation Meds: None Allergies: NKDA Social history: Non-smoker, no drinking history, currently a student in the nursing program Family history: Brother with biliary cancer Review of Systems Review of Systems ROS Unobtainable: All systems reviewed & no additional complaints except as documented Meds Home Medications and Allergies Home Medications ?Medication ?Instructions ?Recorded ?Confirmed ?Type No Known Home Medications 05/26/25 05/26/25 History Allergies Allergy/AdvReac Type Severity Reaction Status Date / Time No Known Allergies Allergy Verified 05/25/25 15:01 Exam Vital Signs Temp Pulse Resp BP Pulse Ox O2 Del Method 97.0 F 64 17 108/72 98 Room Air 05/26/25 12:00 05/26/25 12:00 05/26/25 12:00 05/26/25 12:00 05/26/25 12:00 05/26/25 12:00 Constitutional Constitutional: no acute distress Routine Respiratory Exam Respiratory: Present no resp distress Routine Abdominal Exam Abdominal: Present soft; Absent tenderness or distended Results Results: Laboratory Laboratory results: results reviewed Results: Imaging Imaging narrative: MRCP reviewed US - abdomen: report reviewed Assessment & Plan Plan 39F presenting with signs and symptoms of pancreatitis likely related to gallstones as she has no history of heavy alcohol use. I explained that cholecystectomy is recommended due to the at least 30% chance of recurrence symptoms, and explained the risks of surgery including need for conversion to open, bleeding, infection and injury to nearby structures potentially requiring further procedures or major biliary reconstruction. Patient expressed understanding but would like to consider the timing of her surgery as she is in the nursing program and may prefer to schedule during her upcoming time off. All questions were answered and patient will reach out with her decision DIETER If patient agrees for surgery during this hospitalization please make NPO at [place]
[2025-05-26 16:00] VITALS: BP 115/84; PULSE 70; RESP 18; TEMP 36.4; O2SAT 97
[2025-05-26] MEDS: ACETAMINOPHEN 325 MG TABLET 650 MG PO ×2 (16:36→22:41)
[2025-05-26 20:00] VITALS: BP 99/68; PULSE 62; RESP 19; TEMP 36.2; O2SAT 98
[2025-05-27] VITALS: BP 116/68; PULSE 63; RESP 18; TEMP 36.8; O2SAT 99
[2025-05-27] MEDS: RINGERS LACTATED 1000 ML 1,000 ML 150 ML IV ×2 (00:56→08:31)
[2025-05-27 04:00] VITALS: BP 115/68; PULSE 68; RESP 17; TEMP 36.7; O2SAT 97
[2025-05-27 05:29] LABS: Basophils # (Auto) 0.0 Thou/mm3 (0.0-0.2); Basophils % (Auto) 1 % (0-2.5); Eosinophils # (Auto) 0.3 Thou/mm3 (0.0-0.5); Eosinophils % (Auto) 7 % (0-10); Hematocrit 37.3 % (36.0-46.0); Hemoglobin 12.6 g/dL (12.0-16.0); Immature Granulocytes Auto 0.01 Thou/mm3 (0.00-0.00); Lymphocytes # (Auto) 2.4 Thou/mm3 (1.0-4.8); Lymphocytes % (Auto) 47 % (10-50); Mean Corpuscular HGB Conc 33.8 g/dl (31.0-37.0); Mean Corpuscular Hemoglobin 32.0 pg (25.0-35.0); Mean Corpuscular Volume 95 fL (80-100); Monocytes # (Auto) 0.5 Thou/mm3 (0.0-0.8); Monocytes % (Auto) 10 % (0-12); Neutrophils # (Auto) 1.9 Thou/mm3 (1.8-7.7); Neutrophils % (Auto) 36 % (37-80); Nucleated Red Blood Cell # 0.00 Thou/mm3 (0.00-0.00); Nucleated Red Blood Cell % 0 /100 WBC (0); Platelet Count 279 Thou/mm3 (140-440); RDW Standard Deviation 43.2 fL (36.4-46.3); Red Blood Count 3.94 Miln/mm3 (4.00-5.20); White Blood Count 5.2 Thou/mm3 (3.6-11.0)
[2025-05-27 06:16] LABS: Alanine Aminotransferase 72 U/L (10-49); Albumin, Serum 3.3 gm/dL (3.5-5.0); Albumin/Globulin Ratio 1.4 (1.2-2.2); Alkaline Phosphatase 66 U/L (46-116); Anion Gap 9 (7-16); Aspartate Amino Transferase 42 U/L (0-34); BUN/Creatinine Ratio 7 Ratio (12-20); Bilirubin,Total 0.4 mg/dL (0.3-1.2); Blood Urea Nitrogen < 5 mg/dL (9-23); Calcium 8.2 mg/dL (8.3-10.6); Calcium (Corrected) 8.8 mg/dL (8.5-10.1); Carbon Dioxide 27.2 mMol/L (20.0-31.0); Chloride 108 mMol/L (98-107); Creatinine (Component) 0.7 mg/dL (0.6-1.3); Estimated Creatinine Clearance 127.0 mL/min (>60); Globulin 2.4 gm/dL (2.3-3.5); Glucose 86 mg/dL (74-106); Magnesium 1.7 mg/dL (1.6-2.6); Osmolality,Calculated 283 (275-295); Phosphorous 2.8 mg/dL (2.4-5.1); Potassium 4.0 mMol/L (3.4-5.1); Sodium 144 mMol/L (136-145); Total Protein 5.7 gm/dL (5.7-8.2); eGFR > 60 See Note
[2025-05-27 07:57] VITALS: BP 125/60; PULSE 68; RESP 17; TEMP 36.6; O2SAT 97
[2025-05-27] MEDS: MAGNESIUM OXIDE 400 MG TABLET PO (08:31)
[2025-05-27 09:30] LABS: Lipase 23 U/L (12-53)
--- NOTE | 2025-05-27 09:57 | PD.RESDS ---
Planned Discharge Date 05/27/25 DS: Providers Provider Date of admission: 05/25/25 20:16 Primary care physician: Denny Marie MD Admitting Provider: Ramon Merrill MD Attending Provider on Admission: Ramon Merrill MD Consults: 05/26/25 13:28 Consult to General Surgery Routine Comment: Consulting Provider: Maryanne Hunter Attending Provider on DC: RESIDENT Kip Discharging Provider: RESIDENT Kip DS: Diagnosis Problem List Completed Was Problem List Reviewed/Reconciled?: Yes Hospital Course Hospital Course Hospital course: Maryanne Wilhelm is a 39-year-old female with a no PMH who presents today with acute epigastric pain,was admitted on 05/25/2025 for pancreatitis. ED course: In the ED, vitals showed: BP 117/76 HR 69 RR 18 Temp 98.7 SpO2 100% on room air, CBC showed elevated WBC 15.3 with neutrophilic predominance but was otherwise unremarkable. CMP showed low EGFR 59, high AST 76, normal ALT 37, normal alkaline phosphatase 100, high HDL cholesterol 68, and significantly elevated lipase over 3500. UA showed 3+ blood, with 26 RBCs per high-powered field (of note, patient was on her period). EKG showed normal sinus rhythm. Gallbladder ultrasound showed abnormal enlargement of the common bile duct 0.8 cm. MRCP showed cholelithiasis but was negative for cholecystitis, common hepatic or common bile duct stones, and pancreatitis. In the ED, patient was given IM ketorolac 30 mg x 1 and 1 L LR bolus x 1. Hospital Course: Upon admission, patient was given IVF 1L LR maintenace fluid at 150ml/hr. MRCP showed cholelithiasis. General Surgery consulted, Dr Hunter for possible elective cholecystectomy, but patient decided to do it at later date. On admission, patient's lipase level was over 3500, but right before discharge, decreased to 23. Patient's Creatinine level decreased from 1.2 to 0.7. Patient has been discharged with instructions to follow up with general surgeon Dr. Hunter in 1 week of discharge from hospital. #Acute pancreatitis #Transaminitis #Leukocytosis-Resolved #CLARE, likely renal/postrenal (BUN/creatinine ratio 7.5)-Resolved #likely 2/2 to dehydration #Hematuria Instructions: Follow up with general surgeon dr Hunter in 1 week of discharge from hospital. Please followup with your PCP within in 3-5 days of discharge from hospital. Recommend low fat diet, tylenol for pain as needed. Follow up with Primary care physician with labs within 3-5 days of discharge. If symptoms persist or worsen, return to the Emergency Department. Safe to dishcarge to Home Assessment and plan discussed with my attending physician Dr. Gotti. Dr. Flores (PGY-1)- Internal medicine resident Time Spent with Patient Time attestation: Total time spent providing and/or coordinating discharge services: Time spent: Greater than 30 minutes Exam Vital Signs Temp Pulse Resp BP Pulse Ox O2 Del Method 97.8 F 68 17 125/60 97 Room Air 05/27/25 07:57 05/27/25 07:57 05/27/25 07:57 05/27/25 07:57 05/27/25 07:57 05/27/25 07:57 Narrative Exam General: No acute distress, well nourished Eye: PERRL, EOMI, normal conjunctiva, no scleral icterus HENT: Normocephalic, atraumatic, hearing intact to conversation at normal volume, moist oral mucosa Neck: Supple, non-tender, no JVD, no lymphadenopathy Lungs: Non-labored respirations, symmetric chest rise, Clear to auscultate bilaterally Heart: Peripheral pulses intact bilaterally, Regular Rate and Rhythm Abdomen: Soft, non-tender, non-distended, Minimal epigastric pain on palpation. Musculoskeletal: Normal range of motion and strength Skin: Skin is warm, dry, no rashes or lesions. Psychiatric: Cooperative, appropriate mood and affect Neuro: Cranial nerves II-XII grossly intact. Strength 5/5 throughout. Sensations intact to light touch. Discharge Plan Plan Patient Disposition: HOME (Self Care) Care Plan Goals: Follow up with general surgeon dr Hunter in 1 week of discharge from hospital. Please followup with your PCP within in 3-5 days of discharge from hospital. Recommend low fat diet, tylenol for pain as needed. Follow up with Primary care physician with labs within 3-5 days of discharge. If symptoms persist or worsen, return to the Emergency Department. Prescriptions/Referrals Prescriptions/Med Rec: No Action No Known Home Medications Referrals: Maryanne Hunter MD [Physician] - Denny Marie MD [Primary Care Provider] - Patient/Caregiver Discharge Instructions Education Materials: Pancreatitis Acute Dc Print Language: Russian Stand Alone Forms: [place] Award Info., Patient Portal Info Letter Discharge Order Discharge Orders: Discharge (Routine); Ordered 05/27/25 Ordered By: Evelyn Pollack Quality Discharge Quality Measures VTE prophylaxis MD Attestestation MD Attestation I have examined the patient, reviewed labs and imaging findings, discussed the case with the resident(s), and reviewed entered orders. I agree with the plan of care as outlined in this note. Time Spent: [address] Shen MD
== END 2025-05-27 11:27 | disposition home or self-care (01) | DRG 439 ==
LOC: SERX 19:33 → SERHOLD 20:34 → S3NX 21:21
PROVIDERS: Nurse Practitioner Family; Admitting Provider Student in an Organized Health Care Education/Training Program; Emergency Provider Emergency Medicine; PCP Family Medicine; Visit Provider Student in an Organized Health Care Education/Training Program
DX: K85.10 Biliary acute pancreatitis without necrosis or infection (principal); N17.9 Acute kidney failure, unspecified; K80.20 Calculus of gallbladder without cholecystitis without obstruction; R74.01 Elevation of levels of liver transaminase levels; E86.0 Dehydration; R31.9 Hematuria, unspecified
CPT/HCPCS: 36415; 74181; 76705; 80053; 80061; 81001; 81025; 83036; 83690; 83735; 84100; 85025; 85610; 85730; 93005; 93225; 96360; 96372; 99283; J1885; J7120; A9270

== ENCOUNTER → 2025-06-01 | Outpatient (CLI) | payer OTHER, SELFPAY ==
[2025-06-01 11:48] LABS: Collection Type, Urine Clean Catch
[2025-06-01 12:22] LABS: Bilirubin,Urine Negative (Negative); Blood,Urine Negative (Negative); Clarity,Urine Clear (Clear/Hazy); Color,Urine Lt-Yellow (Lt Yel-Yel); Culture Indicated,Urine Not Indicated; Glucose, Urine Negative (Negative); Ketones,Urine Negative (Negative); Leukocyte Esterase,Urine Negative (Negative); Nitrite,Urine Negative (Negative); PH,Urine 6.0 (5.0-7.0); Protein,Urine Negative (Neg - Trace); RBC,Urine 1 /hpf (0-3); Specific Gravity,Urine 1.010 (1.001-1.035); Squamous Epithelial Cell,Urine 3 /hpf (0-5); Urobilinogen,Urine Negative mg/dL (0.0-1.0); WBC,Urine < 1 /hpf (0-5)
[2025-06-01 12:29] LABS: Basophils # (Auto) 0.0 Thou/mm3 (0.0-0.2); Basophils % (Auto) 1 % (0-2.5); Eosinophils # (Auto) 0.2 Thou/mm3 (0.0-0.5); Eosinophils % (Auto) 3 % (0-10); Hematocrit 43.6 % (36.0-46.0); Hemoglobin 15.1 g/dL (12.0-16.0); Immature Granulocytes Auto 0.02 Thou/mm3 (0.00-0.00); Lymphocytes # (Auto) 1.8 Thou/mm3 (1.0-4.8); Lymphocytes % (Auto) 31 % (10-50); Mean Corpuscular HGB Conc 34.6 g/dl (31.0-37.0); Mean Corpuscular Hemoglobin 32.1 pg (25.0-35.0); Mean Corpuscular Volume 93 fL (80-100); Monocytes # (Auto) 0.6 Thou/mm3 (0.0-0.8); Monocytes % (Auto) 10 % (0-12); Neutrophils # (Auto) 3.2 Thou/mm3 (1.8-7.7); Neutrophils % (Auto) 56 % (37-80); Nucleated Red Blood Cell # 0.00 Thou/mm3 (0.00-0.00); Nucleated Red Blood Cell % 0 /100 WBC (0); Platelet Count 293 Thou/mm3 (140-440); RDW Standard Deviation 41.4 fL (36.4-46.3); Red Blood Count 4.71 Miln/mm3 (4.00-5.20); White Blood Count 5.8 Thou/mm3 (3.6-11.0)
[2025-06-01 12:37] LABS: Glucose Estimated Average 97 mg/dL (80-131); Hemoglobin A1C 5.0 % Hgb (4.8-6.0)
[2025-06-01 12:46] LABS: Alanine Aminotransferase 27 U/L (10-49); Albumin, Serum 4.5 gm/dL (3.5-5.0); Albumin/Globulin Ratio 1.5 (1.2-2.2); Alkaline Phosphatase 74 U/L (46-116); Anion Gap 5 (7-16); Aspartate Amino Transferase 19 U/L (0-34); BUN/Creatinine Ratio 8 Ratio (12-20); Bilirubin,Total 0.5 mg/dL (0.3-1.2); Blood Urea Nitrogen 6 mg/dL (9-23); Calcium 8.9 mg/dL (8.3-10.6); Calcium (Corrected) 8.9 mg/dL (8.5-10.1); Carbon Dioxide 27.2 mMol/L (20.0-31.0); Cardiac Risk Estimate 2.4 RATIO (3.7-5.6); Chloride 104 mMol/L (98-107); Cholesterol 146 mg/dL (132-200); Creatinine (Component) 0.8 mg/dL (0.6-1.3); Globulin 3.1 gm/dL (2.3-3.5); Glucose 94 mg/dL (74-106); HDL Cholesterol 61 mg/dL (40-60); LDL Cholesterol,Calculated 72 mg/dL (0-130); Lipase 29 U/L (12-53); Osmolality,Calculated 269 (275-295); Potassium 4.2 mMol/L (3.4-5.1); Sodium 136 mMol/L (136-145); Thyroid Stimulating Hormone 0.92 uIU/mL (0.55-4.78); Total Protein 7.6 gm/dL (5.7-8.2); Triglycerides 67 mg/dL (30-150); eGFR > 60 See Note
== END | disposition home or self-care (01) ==
LOC: COPL 11:16
PROVIDERS: PCP Registered Nurse; Referring Provider Registered Nurse; Visit Provider Registered Nurse
DX: R79.89 Other specified abnormal findings of blood chemistry (principal); K85.90 Acute pancreatitis without necrosis or infection, unspecified; K80.20 Calculus of gallbladder without cholecystitis without obstruction; R31.9 Hematuria, unspecified
CPT/HCPCS: 36415; 80053; 80061; 81001; 83036; 83690; 84443; 85025

== ENCOUNTER 2025-06-29 11:48 | Day surgery (SDC) | payer OTHER, SELFPAY ==
[2025-06-28 07:08] VITALS: BMI 33.7
[2025-06-28 09:10] LABS: Basophils # (Auto) 0.0 Thou/mm3 (0.0-0.2); Basophils % (Auto) 1 % (0-2.5); Eosinophils # (Auto) 0.2 Thou/mm3 (0.0-0.5); Eosinophils % (Auto) 4 % (0-10); Hematocrit 44.0 % (36.0-46.0); Hemoglobin 15.1 g/dL (12.0-16.0); Immature Granulocytes Auto 0.01 Thou/mm3 (0.00-0.00); Lymphocytes # (Auto) 1.9 Thou/mm3 (1.0-4.8); Lymphocytes % (Auto) 33 % (10-50); Mean Corpuscular HGB Conc 34.3 g/dl (31.0-37.0); Mean Corpuscular Hemoglobin 31.9 pg (25.0-35.0); Mean Corpuscular Volume 93 fL (80-100); Monocytes # (Auto) 0.5 Thou/mm3 (0.0-0.8); Monocytes % (Auto) 9 % (0-12); Neutrophils # (Auto) 3.1 Thou/mm3 (1.8-7.7); Neutrophils % (Auto) 54 % (37-80); Nucleated Red Blood Cell # 0.00 Thou/mm3 (0.00-0.00); Nucleated Red Blood Cell % 0 /100 WBC (0); Platelet Count 284 Thou/mm3 (140-440); RDW Standard Deviation 42.1 fL (36.4-46.3); Red Blood Count 4.73 Miln/mm3 (4.00-5.20); White Blood Count 5.8 Thou/mm3 (3.6-11.0)
[2025-06-28 09:11] LABS: HCG,Qualitative Serum Negative
[2025-06-28 09:32] LABS: Alanine Aminotransferase 10 U/L (10-49); Albumin, Serum 4.5 gm/dL (3.5-5.0); Albumin/Globulin Ratio 1.6 (1.2-2.2); Alkaline Phosphatase 67 U/L (46-116); Anion Gap 8 (7-16); Aspartate Amino Transferase 17 U/L (0-34); BUN/Creatinine Ratio 11 Ratio (12-20); Bilirubin,Total 0.5 mg/dL (0.3-1.2); Blood Urea Nitrogen 9 mg/dL (9-23); Calcium 10.0 mg/dL (8.3-10.6); Calcium (Corrected) 10.0 mg/dL (8.5-10.1); Carbon Dioxide 28.2 mMol/L (20.0-31.0); Chloride 105 mMol/L (98-107); Creatinine (Component) 0.8 mg/dL (0.6-1.3); Estimated Creatinine Clearance 108.5 mL/min (>60); Globulin 2.9 gm/dL (2.3-3.5); Glucose 94 mg/dL (74-106); Osmolality,Calculated 279 (275-295); Potassium 4.2 mMol/L (3.4-5.1); Sodium 141 mMol/L (136-145); Total Protein 7.4 gm/dL (5.7-8.2); eGFR > 60 See Note
--- NOTE | 2025-06-28 14:09 | SUR.PREOP ---
Pt notified to come in at 0930 tomorrow for surgery.
--- NOTE | 2025-06-28 14:40 | SUR.PREOP ---
Pt was moved back to surgery at 1330, to be here at 1130. Pt notified.
[2025-06-29] VITALS (14 sets, daily range): BP systolic 112–165; BP diastolic 68–92; PULSE 74–101; RESP 14–21; TEMP 36.2–36.9; O2SAT 95–100; BMI 33.5
[2025-06-29] MEDS: RINGERS LACTATED 1000 ML 1,000 ML 20 ML IV (12:14)
--- NOTE | 2025-06-29 13:45 | SUR.PHASEI ---
pt arrived to PACU via gurney drowsy but arouses to voice, breathing unlabored, dressing to abdomen clean, dry, and intact, pt reports pain 06/11-Dr Kam medicated at bedside for pain, report from Denise CHOUDHURY and Dr Kam
--- NOTE | 2025-06-29 13:55 | SUR.PHASEI ---
Report to Radha RN
--- NOTE | 2025-06-29 14:02 | PD.SUROPNT ---
Date of Procedure 06/29/25 Pre Op Diagnosis Symptomatic cholelithiasis Post Op Diagnosis Cholelithiasis with cholecystitis Procedure Laparoscopic cholecystectomy Findings Moderately distended gallbladder with large gallstone and chronic cholecystitis Procedure Description Patient was brought into the operating room in supine position. After administration of general endotracheal anesthesia abdomen was prepped and draped in standard surgical manner. A Veress needle was inserted through the umbilicus and pneumoperitoneum was obtained up to 15 mmHg. The Veress needle was then removed, a 5 mm infraumbilical incision was made and the 5mm trocar was inserted. Laparoscopic camera was placed. Under direct visualization a laparoscopic camera a 10 mm trocar was placed in subxiphoid and two 5 mm trocars placed in right upper quadrant. The gallbladder was identified and was noted to be moderately distended with a large gallstone and chronic cholecystitis. It was retracted cephalad and laterally. Dissection started near the infundibulum of gallbladder where cystic duct and gallbladder junction clearly identified. The cystic duct was circumferentially dissected off the peritoneum and surrounding inflammatory tissue. The critical view of safety was clearly demonstrated. Cystic duct was then divided between 2 endoclips proximally and one distally. The cystic artery was similarly dissected and divided. The gallbladder was then from the liver bed using electrocautery. The gallbladder was then placed inside an Endo Catch and removed from the abdomen utilizing subxiphoid trocar site. The area was copiously and thoroughly washed and irrigated, all the fluid was suctioned and the suction fluid returned clear. Hemostasis achieved using electrocautery. Endoclips noted be in place and intact without any bleeding or any leakage. Hemostasis was adequate and satisfactory. The subxiphoid trocar sites fascial defect was closed with 0 Vicryl using Endo Closure device. Instruments and trocars removed, pneumoperitoneum was evacuated and the incisions closed with 4-0 Monocryl in subcuticular fashion. Instrument needle and sponge counts were all reported to be correct X2. Patient tolerated the procedure well, was extubated, breathing spontaneously and without difficulty and was transferred to postanesthesia care in stable condition. Anesthesia GETA and local Pathology / specimen Other (Gallbladder and contents) Estimated Blood Loss 10 Condition Stable Disposition PACU Surgeon Emerita Dial MD Surgical Staff Operation Date: 06/29/25 15:30 Case Staff Anesthesiologist: Jonah Kam RNrenewable energy engineer: Alejandra Castillo
[2025-06-29] MEDS: HYDROmorphone INJ 2 MG/ML VIAL 0.5 MG IVP ×2 (14:08→14:36)
--- NOTE | 2025-06-29 14:13 | SUR.PHASEI ---
1355: Assumed care. Pt groggy, but awake. Resp even, unlabored. VS stable. Surgical sites x4 to abdomen dry, clean, intact. 1408: Pt has c/o pain to abdomen. Rates pain level 10/10. Resp even, unlabored. VS stable. Pain medication given per order.
--- NOTE | 2025-06-29 14:42 | SUR.PHASEII ---
1436: Pt awake with c/o pain to abdomen. Rates pain level 6/10. Resp even, unlabored. VS stable. Pain medication given per order.
--- NOTE | 2025-06-29 14:52 | SUR.PHASEII ---
1445: Pt resting. States pain level coming down and not as intense. Resp even, unlabored. VS stable. Report to Loreto CHOUDHURY.
[2025-06-29] MEDS: ONDANSETRON INJ 2 MG/ML INJ 2 ML 4 MG IVP (15:10)
--- NOTE | 2025-06-29 16:30 | SUR.PHASEII ---
1630: Pt. AAOx4, vitals stable, breathing unlabored, no complaint of pain, complaint of nausea, administered zofran to pt., pt. stated zofran helped with the nausea slightly, x4 dermabond sites to ABD CDI, no active bleed noted, pt. took sips of soda, discharge instructions given to the pt. and her ride, both verbalized understanding and had no further questions. Pt. left with all personal belongings.
--- NOTE | 2025-06-30 16:01 | PD.ANESPROG ---
Documentation for date of: 06/30/25 POST ANESTHESIA NOTE: Patient had GETA for lap cholecystectomy yesterday. I just called and spoke with her on the phone and she denied any problems from anesthesia except brief nausea upon transfer to chair which resolved when she got home. Jonah Kam MD Anesthesia Progress Note Progress Note Most recent Vital Signs: Last Vital Signs Temp 97.5 F 06/29/25 16:20 Pulse 79 06/29/25 16:20 Resp 20 06/29/25 16:20 BP 122/78 06/29/25 16:20 Pulse Ox 97 06/29/25 16:20 O2 Flow Rate 4 06/29/25 13:50
== END 2025-06-29 16:30 | disposition home or self-care (01) ==
PROVIDERS: PCP Family Medicine; Referring Provider Surgery; Visit Provider Surgery
PROC: 0FT44ZZ Resection of Gallbladder, Percutaneous Endoscopic Approach (ICD-10-PCS; CPT 47562; principal; 2025-06-29 15:30)
DX: K80.10 Calculus of gallbladder with chronic cholecystitis without obstruction (principal)
CPT/HCPCS: 47562; 36415; 80053; 84703; 85025; A4217; A4649; J0131; J0694; J1100; J1171; J2405; J2704; J3010; J3490; J7120

== ENCOUNTER → 2025-07-17 | Outpatient (CLI) | payer OTHER, SELFPAY ==
[2025-07-17 09:55] LABS: Quantiferon-TB* See Sep Rpt
== END | disposition home or self-care (01) ==
LOC: COPL 09:24
PROVIDERS: PCP Nurse Practitioner Family; Referring Provider Nurse Practitioner Family; Visit Provider Nurse Practitioner Family
DX: Z11.1 Encounter for screening for respiratory tuberculosis (principal)
CPT/HCPCS: 86480

== ENCOUNTER → 2025-07-18 | Outpatient (CLI) | payer OTHER, SELFPAY ==
--- NOTE | 2025-07-18 10:30 | XR_ITS ---
Examination: Diagnostic digital mammography, unilateral, right Computer aided detection 3-D breast Tomosynthesis, unilateral Date and time of exam: July 18, 2025 1001 hours INDICATIONS: Mammogram September 05, 2024 microcalcifications lower inner right breast Technique: Nonmagnified MLO, CC views of the right breast have been obtained, reconstructed from 3-D Tomosynthesis images. R2 computer aided detection program utilized for evaluation of suspicious masses and/or abnormal calcifications. 3-D Tomosynthesis images obtained. Findings: Scattered areas of fibroglandular density. Intact implant No suspicious masses There are grouped microcalcifications on the spot compression mediolateral film retroareolar IMPRESSION: BI-RADS Category 0: Incomplete: Need additional imaging evaluation There are grouped microcalcifications on the spot compression mediolateral film retroareolar, recommend follow-up negative indications Spot compression film retroareolar region right breast CC view
== END | disposition home or self-care (01) ==
LOC: CDIM 10:03
PROVIDERS: PCP Nurse Practitioner Family; Referring Provider Nurse Practitioner Family; Visit Provider Nurse Practitioner Family
DX: R92.0 Mammographic microcalcification found on diagnostic imaging of breast (principal)
CPT/HCPCS: 77061; 77065; G0279

== ENCOUNTER → 2025-08-02 | Outpatient (CLI) | payer OTHER, SELFPAY ==
--- NOTE | 2025-08-02 10:45 | XR_ITS ---
Examination: Diagnostic digital mammography, unilateral, right Computer aided detection 3-D breast Tomosynthesis, unilateral Date and time of exam: August 02, 2025 1047 hours, INDICATIONS: Mammogram 07/18/2025 grouped microcalcifications retroareolar Technique: Nonmagnified MLO, CC views of the right breast have been obtained, reconstructed from 3-D Tomosynthesis images. R2 computer aided detection program utilized for evaluation of suspicious masses and/or abnormal calcifications. 3-D Tomosynthesis images obtained. Findings: Scattered areas of probable glandular density. Probably benign microcalcifications retroareolar Impression: BI-RADS category 3: Probably benign findings Recommend continued 6 month right middle
== END | disposition home or self-care (01) ==
PROVIDERS: Referring Provider Nurse Practitioner Family; Visit Provider Nurse Practitioner Family
DX: R92.331 Mammographic heterogeneous density, right breast (principal)
CPT/HCPCS: 77061; 77065; G0279

== ENCOUNTER → 2025-09-04 | Outpatient (CLI) | payer OTHER, SELFPAY ==
--- NOTE | 2025-09-04 07:45 | XR_ITS ---
Examination: Diagnostic digital mammography, unilateral, left Computer aided detection 3-D breast Tomosynthesis, unilateral Date and time of exam: 09/04/2025, 8:28 a.m. Comparisons: September 2024 Indications: Calcifications right breast Technique: Nonmagnified MLO, CC views of the left breast have been obtained, reconstructed from 3-D Tomosynthesis images. R2 computer aided detection program utilized for evaluation of suspicious masses and/or abnormal calcifications. 3-D Tomosynthesis images obtained. Technologist: Findings: There are scattered areas of fibroglandular density. No evidence of abnormal masses or suspicious calcifications. Left subpectoral saline implants appear intact. Impression: BI-RADS category 1: Negative findings (within normal) Recommend 1 year follow-up mammogram
--- NOTE | 2025-09-04 08:30 | XR_ITS ---
Examination: Breast ultrasound, unilateral, left complete Date and time of exam: September 04, 2025, 0857 hours INDICATIONS: Mammogram August 02, 2025 BI-RADS 3 probably benign microcalcifications retroareolar region left breast Technique: Real-time kate scale ultrasonographic imaging performed left breast including all 4 quadrants as well as nipple retroareolar and axillary region. Findings: No cystic or solid mass IMPRESSION: BI-RADS Category 1: Negative study
== END | disposition home or self-care (01) ==
PROVIDERS: PCP Nurse Practitioner Family; Referring Provider Nurse Practitioner Family; Visit Provider Nurse Practitioner Family
DX: R92.312 Mammographic fatty tissue density, left breast (principal)
CPT/HCPCS: 76641; 77061; 77065; G0279